=== PATIENT | female | born 1950 | race Caucasian/White ===

== ENCOUNTER 2016-09-01 19:11 | Emergency (ER) | payer MEDICARE ==
[2016-09-01 19:11] VITALS: BMI 30.8
--- NOTE | 2016-09-01 20:16 | C.PDOC ---
History Of Present Illness Patient is a 66 y/o female that presents to the emergency department for evaluation of abdominal pain, nausea, and vomiting that started early today. Pt reports decreased PO intake. Pt was seen here on 05/07/16 with similar symptoms. Otherwise, denies any fever chills, diarrhea, back pain, or any other associated symptoms at this time. Time Seen by Provider: 09/01/16 20:16 Chief Complaint (Nursing): GI Problem History Per: Patient History/Exam Limitations: no limitations Onset/Duration Of Symptoms: Other (early today) Current Symptoms Are (Timing): Still Present Location Of Pain/Discomfort: Diffuse Radiation Of Pain To:: None Quality Of Discomfort: "Pain" Associated Symptoms: Nausea, Vomiting, Loss Of Appetite (decreased PO intake). denies: Fever, Chills, Diarrhea, Back Pain, Chest Pain, Constipation, Urinary Symptoms Exacerbating Factors: None Alleviating Factors: None Recent travel outside of the [place]: No Additional History Per: Patient Abnormal Vaginal Bleeding: No Past Medical History Reviewed: Historical Data, Nursing Documentation, Vital Signs Vital Signs: Last Vital Signs Temp 98.0 F 09/01/16 21:47 Pulse 63 09/01/16 21:47 Resp 21 09/01/16 21:47 BP 132/56 L 09/01/16 21:47 Pulse Ox 94 L 09/01/16 22:07 - Medical History PMH: Diabetes, HTN Family History: States: Unknown Family Hx - Social History Hx Tobacco Use: No Hx Alcohol Use: No Hx Substance Use: No - Immunization History Hx Tetanus Toxoid Vaccination: No Hx Influenza Vaccination: Yes Hx Pneumococcal Vaccination: No Review Of Systems Constitutional: Negative for: Fever, Chills Cardiovascular: Negative for: Chest Pain, Palpitations, Light Headedness Respiratory: Negative for: Cough, Shortness of Breath Gastrointestinal: Positive for: Nausea, Vomiting, Abdominal Pain. Negative for : Diarrhea, Constipation, Hematemesis Genitourinary: Negative for: Dysuria, Frequency, Incontinence, Hematuria Musculoskeletal: Negative for: Back Pain Skin: Negative for: Rash, Lesions, Jaundice, Bruising Neurological: Negative for: Weakness, Numbness, Headache, Dizziness Physical Exam - Physical Exam Appears: Non-toxic, No Acute Distress Skin: Warm, Dry Head: Atraumatic, Normacephalic Eye(s): bilateral: Normal Inspection, EOMI Oral Mucosa: Moist Neck: Supple Chest: Symmetrical, No Tenderness Cardiovascular: Rhythm Regular, No Murmur Respiratory: No Rales, No Rhonchi, No Wheezing Gastrointestinal/Abdominal: Soft, No Tenderness, Distention, No Guarding, No Rebound, Other (tympanic to percussion) Back: No CVA Tenderness Extremity: Normal ROM Extremity: Bilateral: Atraumatic Neurological/Psych: Oriented x3, Normal Speech, Normal Cognition ED Course And Treatment - Laboratory Results Result Diagrams: 09/01/16 04:52 09/01/16 04:52 ECG: Interpreted By Me, Viewed By Me ECG Rhythm: Sinus Rhythm (59), Nonspecific Changes O2 Sat by Pulse Oximetry: 94 Pulse Ox Interpretation: Normal - Radiology CXR: Interpreted by Me, Viewed By Me CXR Interpretation: No: Infiltrates, Fracture, Pnemothorax Progress Note: EKG, labs ordered and reviewed. Pt was given Pepcid, Zofran, and IV fluids in the ER. Reevaluation Time: 23:36 Reassessment Condition: Improved Disposition Counseled Patient/Family Regarding: Studies Performed, Diagnosis, Need For Followup, Rx Given - Disposition Referrals: Danuta Chery FNP [Advanced Practice Nurse] - Disposition: HOME/ ROUTINE Disposition Time: 20:16 Condition: FAIR Prescriptions: Dicyclomine [Dicyclomine HCl] 10 mg PO QID #20 cap Metronidazole [Flagyl] 500 mg PO TID #21 tablet Instructions: Abdominal Pain (ED), Gas and Bloating (ED), Colitis (ED) Print Language: TAIWANESE - Clinical Impression Clinical Impression: Abdominal pain, Colitis - Scribe Statement The provider has reviewed the documentation as recorded by the Leanne Marks Provider Attestation: All medical record entries made by the Leanne were at my direction and personally dictated by me. I have reviewed the chart and agree that the record accurately reflects my personal performance of the history, physical exam, medical decision making, and the department course for this patient. I have also personally directed, reviewed, and agree with the discharge instructions and disposition.
[2016-09-01] MEDS ORDERED: Sodium Chloride 0.9% 1,000 ML IV ONE (20:19)
[2016-09-01 20:31] LABS: BASO # 0.1 K/uL (0.0-0.2); BASO % 0.8 % (0.0-2.0); EOS # 0.2 K/uL (0.0-0.7); EOS % 1.4 % (0.0-4.0); HEMATOCRIT 36.8 % (34.0-47.0); LYMPH # 2.1 K/uL (1.0-4.3); LYMPH % 16.6 % (20.0-40.0); MEAN CELL VOLUME 81.1 fL (81.0-99.0); MEAN CORPUSCULAR HEMOGLOBIN 25.4 pg (27.0-31.0); MEAN CORPUSCULAR HGB CONC 31.3 g/dL (33.0-37.0); MEAN PLATELET VOLUME 8.8 fL (7.2-11.7); MONO # 0.9 K/uL (0.0-0.8); MONO % 6.6 % (0.0-10.0); RED CELL DISTRIBUTION WIDTH 14.4 % (11.5-14.5); WHITE BLOOD COUNT 12.9 K/uL (4.8-10.8)
[2016-09-01 20:50] LABS: INR 1.2
[2016-09-01] MEDS ORDERED: Sodium Chloride 0.9% 1,000 ML ONE (20:58)
[2016-09-01 21:13] LABS: CHLORIDE 93 mmol/L (98-107)
[2016-09-01 21:14] LABS: SODIUM 133 mmol/L (132-148)
[2016-09-01 21:15] LABS: POTASSIUM 4.4 mmol/L (3.6-5.2)
[2016-09-01 21:17] LABS: ALKALINE PHOSPHATASE 123 U/L (38-126); ALT/SGPT 38 U/L (9-52); AST/SGOT 24 U/L (14-36); BILIRUBIN,TOTAL 0.6 mg/dL (0.2-1.3); BLOOD UREA NITROGEN 15 mg/dL (7-17); CARBON DIOXIDE 30 mmol/L (22-30); GFR AFRICAN-AMERICAN > 60
[2016-09-01 21:18] LABS: CALCIUM 8.5 mg/dl (8.6-10.4); GLUCOSE,RANDOM 297 mg/dL (65-105)
[2016-09-01 21:49] VITALS: BP 132/56; PULSE 63; RESP 21; TEMP 98
[2016-09-01 21:55] LABS: RBC URINE < 1 /hpf (0-3); URINE BILIRUBIN NEGATIVE (NEGATIVE); URINE BLOOD NEGATIVE (NEGATIVE); URINE COLOR Yellow (YELLOW); URINE GLUCOSE (UA) 3+ mg/dL (Normal); URINE KETONE NEGATIVE (NEGATIVE); URINE LEUKOCYTE ESTERASE NEG Leu/uL (Negative); URINE PROTEIN NEGATIVE (NEGATIVE); URINE UROBILINOGEN NORMAL mg/dL (0.2-1.0); WBC URINE 2 /hpf (0-5)
[2016-09-01 22:07] VITALS: O2SAT 94
[2016-09-01] MEDS ORDERED: Iodixanol 320 MG/ML 100 ML BOTTLE IV ONE (22:50)
--- NOTE | 2016-09-01 23:24 | CT ---
EXAM: CT Abdomen and Pelvis With Intravenous Contrast CLINICAL HISTORY: 66 years old, female; Pain; Abdominal pain; Generalized; Additional info: Abd pain. , N/v TECHNIQUE: Axial computed tomography images of the abdomen and pelvis with intravenous contrast. This CT exam was performed using one or more of the following dose reduction techniques: automated exposure control, adjustment of the mA and/or kV according to patient size, and/or use of iterative reconstruction technique. Coronal and sagittal reformatted images were created and reviewed. CONTRAST: 100 mL of [id number] administered intravenously. COMPARISON: No relevant prior studies available. FINDINGS: Lower thorax: The bilateral lung bases are clear. The heart is of normal size. A small hiatal hernia is present. ABDOMEN: Liver: No acute findings. Gallbladder and bile ducts: The gallbladder is only minimally distended, without calcified stones. No significant intra- or extrahepatic biliary ductal dilation. Pancreas: Enhances homogeneously. No ductal dilation. No discrete mass. Spleen: No acute findings. Adrenals: No acute findings. Kidneys and ureters: No acute findings. No hydronephrosis or renal calculi. No discrete solid mass. PELVIS: Bladder: No acute findings. Reproductive: No acute findings. Appendix: The air filled appendix is of normal caliber (series 3, image 117; series 601, image 65 ) . ABDOMEN and PELVIS: Stomach and bowel: No obstruction. Mural thickening within multiple loops of small bowel, without surrounding inflammation or fluid to confirm an enteritis. Peritoneum: No significant fluid collection. No free air. Lymph nodes: No pathologically enlarged lymph nodes. Vasculature: Calcified atherosclerotic disease. Bones: No acute fracture. IMPRESSION: Mural thickening within multiple loops of small bowel, without surrounding inflammation or fluid to confirm an enteritis.
--- NOTE | 2016-09-02 18:05 | RAD ---
PROCEDURE: CHEST RADIOGRAPH, 1 VIEW HISTORY: cough COMPARISON: Comparison chest - 06/12/2014 FINDINGS: LUNGS: Poor inspiration with low lung volumes, crowded bronchovascular markings and mild bibasilar atelectasis. PLEURA: No pneumothorax or pleural fluid seen. CARDIOVASCULAR: Heart appears borderline/ mildly enlarged. OSSEOUS STRUCTURES: Mild degenerative changes both shoulder girdles. Mild multilevel degenerative spondylosis of the thoracic spine again noted VISUALIZED UPPER ABDOMEN: Normal. OTHER FINDINGS: None. IMPRESSION: Poor inspiration with low lung volumes, crowded bronchovascular markings and mild bibasilar atelectasis.
--- NOTE | 2016-09-07 16:40 | CARD ---
APPROVED REPORT EKG Measurement Heart [id number] MD [id number] <Conclusion> Sinus bradycardia Otherwise normal ECG
== END 2016-09-01 23:58 | disposition home or self-care (01) ==
LOC: C.ER 19:11
DX: K52.9 Noninfective gastroenteritis and colitis, unspecified (principal); R10.84 Generalized abdominal pain
CPT/HCPCS: 71010; 74177; 80053; 81001; 83690; 85025; 85610; 85730; 96361; 96374; 96375; 99284; J2405; J7040; Q9967

== ENCOUNTER 2017-01-16 08:37 | Emergency (ER) | payer MEDICARE ==
[2017-01-16 08:37] VITALS: BMI 30.8
[2017-01-16 08:47] VITALS: TEMP 97.9
[2017-01-16] MEDS ORDERED: Sodium Chloride 0.9% 1,000 ML IV ONE (09:14)
[2017-01-16] MEDS ORDERED: Sodium Chloride 0.9% 1,000 ML ONE (09:30)
[2017-01-16 09:31] LABS: RBC URINE 6 /hpf (0-3); URINE BACTERIA RARE (<OCC); URINE BILIRUBIN NEGATIVE (NEGATIVE); URINE BLOOD NEGATIVE (NEGATIVE); URINE COLOR Yellow (YELLOW); URINE GLUCOSE (UA) 2+ mg/dL (Normal); URINE KETONE NEGATIVE (NEGATIVE); URINE LEUKOCYTE ESTERASE 3+ Leu/uL (Negative); URINE PROTEIN NEGATIVE (NEGATIVE); URINE UROBILINOGEN NORMAL mg/dL (0.2-1.0); WBC URINE 122 /hpf (0-5)
--- NOTE | 2017-01-16 09:57 | C.PDOC ---
History Of Present Illness 66 y/o female with PMHx of DM and HTN presents to ED with complaints of right sided flank pain and abdominal pain for 1 week. Patient denies fever, chills, nausea, vomiting, urinary symptoms or any other complaints at this time. Time Seen by Provider: 01/16/17 08:45 Chief Complaint (Nursing): Back Pain History Per: Patient History/Exam Limitations: no limitations Onset/Duration Of Symptoms: Days Current Symptoms Are (Timing): Still Present Quality Of Discomfort: "Pain" Severity: Mild Exacerbating Factor(s): Movement Recent travel outside of the [place]: No Past Medical History Reviewed: Historical Data, Nursing Documentation, Vital Signs Vital Signs: Last Vital Signs Temp 97.9 F 01/16/17 08:45 Pulse 68 01/16/17 11:40 Resp 16 01/16/17 11:40 BP 141/73 01/16/17 11:40 Pulse Ox 99 01/16/17 11:40 - Medical History PMH: Diabetes, HTN Surgical History: No Surg Hx Family History: States: No Known Family Hx - Social History Hx Tobacco Use: No Hx Alcohol Use: No Hx Substance Use: No - Immunization History Hx Tetanus Toxoid Vaccination: No Hx Influenza Vaccination: Yes Hx Pneumococcal Vaccination: Yes Review Of Systems Constitutional: Negative for: Fever, Chills Respiratory: Negative for: Shortness of Breath Gastrointestinal: Negative for: Nausea, Vomiting, Abdominal Pain Genitourinary: Negative for: Dysuria, Frequency, Hematuria Musculoskeletal: Positive for: Other (flank pain) Skin: Negative for: Rash Neurological: Negative for: Weakness, Numbness Physical Exam - Physical Exam Appears: Non-toxic, No Acute Distress Skin: Warm, Dry, No Rash Head: Atraumatic, Normacephalic Oral Mucosa: Moist Neck: Normal ROM, Supple Chest: Symmetrical Cardiovascular: Rhythm Regular Respiratory: Normal Breath Sounds, No Rales, No Rhonchi, No Wheezing Gastrointestinal/Abdominal: Soft, Tenderness (mild right side tenderness), No Guarding, No Rebound Rectal: Other (mild right flank tenderness) Back: Paraspinal Tenderness Extremity: Normal ROM Pulses: Left Radial: Normal, Right Radial: Normal Neurological/Psych: Oriented x3, Normal Motor, Normal Sensation Gait: Steady ED Course And Treatment - Laboratory Results Result Diagrams: 01/16/17 10:14 01/16/17 10:14 Lab Interpretation: No Acute Changes O2 Sat by Pulse Oximetry: 100 (RA) Pulse Ox Interpretation: Normal - CT Scan/US No standard instances Other Rad Studies (CT/US): Read By Radiologist, Radiology Report Reviewed CT/US Interpretation: FINDINGS: LOWER THORAX: Unremarkable. LIVER: Unremarkable. No gross lesion or ductal dilatation. GALLBLADDER AND BILE DUCTS : Unremarkable. PANCREAS: Unremarkable. No gross lesion or ductal dilatation. SPLEEN: Unremarkable. ADRENALS: Unremarkable. No mass. KIDNEYS AND URETERS: Unremarkable. No hydronephrosis. No solid mass. VASCULATURE: Unremarkable. No aortic aneurysm. BOWEL: Mild retained feces. No bowel obstruction. No abnormal bowel loops. APPENDIX: Unremarkable. Normal appendix. PERITONEUM: Unremarkable. No free fluid. No free air. Very small umbilical hernia containing only mesenteric fat. LYMPH NODES: Unremarkable. No enlarged lymph nodes. BLADDER: Suboptimally distended. No gross abnormality. REPRODUCTIVE: Normal uterus. BONES: No fracture. Degenerative disc disease L3-4, L4-5 and L5-S1. OTHER FINDINGS: Probable mild constipation with fecal retention. No bowel obstruction. The remainder of the examination is unremarkable aside from minor findings as above. IMPRESSION: Unremarkable non contrast enhanced CT of the abdomen and pelvis. Progress Note: Treated with IVF NSS and toradol. Treated with macrobid. On re- evaluation feeling better, abdomen soft ambulating with steady gait Reassessment Condition: Improved Medical Decision Making Medical Decision Making: Plan: CT Scan, Labs Disposition Counseled Patient/Family Regarding: Studies Performed, Diagnosis, Need For Followup, Rx Given - Disposition Referrals: [facility] [Outside] [facility] [Outside] Disposition: HOSPITALIZED Disposition Time: 11:10 Condition: IMPROVED Prescriptions: Cyclobenzaprine [Cyclobenzaprine HCl] 10 mg PO BID PRN #10 tab PRN Reason: Pain, Mild (1-3) Nitrofurantoin Macrocrystals [Macrobid] 1 cap PO BID #14 cap Polyethylene Glycol 3350 [Miralax] 17 gm PO DAILY PRN #10 [id number] PRN Reason: Constipation Instructions: Urinary Tract Infection in Women (ED), Back Pain (ED) Forms: [employer] (Sudanese) Print Language: WELSH - POA Present On Arrival: None - Clinical Impression Clinical Impression: Low back pain, UTI (urinary tract infection) - PA / BEVERAGE SERVER / Resident Statement MD/DO has reviewed & agrees with the documentation as recorded. - Scribe Statement The provider has reviewed the documentation as recorded by the Scribe Bulmaro Nguyen All medical record entries made by the Leanne were at my direction and personally dictated by me. I have reviewed the chart and agree that the record accurately reflects my personal performance of the history, physical exam, medical decision making, and the department course for this patient. I have also personally directed, reviewed, and agree with the discharge instructions and disposition.
[2017-01-16 10:24] LABS: BASO # 0.1 K/uL (0.0-0.2); BASO % 0.9 % (0.0-2.0); EOS # 0.3 K/uL (0.0-0.7); EOS % 2.5 % (0.0-4.0); HEMATOCRIT 36.6 % (34.0-47.0); LYMPH # 2.1 K/uL (1.0-4.3); LYMPH % 20.1 % (20.0-40.0); MEAN CELL VOLUME 79.9 fL (81.0-99.0); MEAN CORPUSCULAR HEMOGLOBIN 25.9 pg (27.0-31.0); MEAN CORPUSCULAR HGB CONC 32.4 g/dL (33.0-37.0); MEAN PLATELET VOLUME 8.7 fL (7.2-11.7); MONO # 0.7 K/uL (0.0-0.8); MONO % 6.4 % (0.0-10.0); RED CELL DISTRIBUTION WIDTH 15.1 % (11.5-14.5); WHITE BLOOD COUNT 10.4 K/uL (4.8-10.8)
--- NOTE | 2017-01-16 10:43 | CT ---
PROCEDURE: CT Abdomen and Pelvis without intravenous contrast HISTORY: Pain COMPARISON: None. TECHNIQUE: Without contrast.. Contrast Dose: 0 Radiation dose: Total exam DLP = 1132.34 mGy-cm. This CT exam was performed using one or more of the following dose reduction techniques: Automated exposure control, adjustment of the mA and/or kV according to patient size, and/or use of iterative reconstruction technique. FINDINGS: LOWER THORAX: Unremarkable. LIVER: Unremarkable. No gross lesion or ductal dilatation. GALLBLADDER AND BILE DUCTS: Unremarkable. PANCREAS: Unremarkable. No gross lesion or ductal dilatation. SPLEEN: Unremarkable. ADRENALS: Unremarkable. No mass. KIDNEYS AND URETERS: Unremarkable. No hydronephrosis. No solid mass. VASCULATURE: Unremarkable. No aortic aneurysm. BOWEL: Mild retained feces. No bowel obstruction. No abnormal bowel loops. APPENDIX: Unremarkable. Normal appendix. PERITONEUM: Unremarkable. No free fluid. No free air. Very small umbilical hernia containing only mesenteric fat. LYMPH NODES: Unremarkable. No enlarged lymph nodes. BLADDER: Suboptimally distended. No gross abnormality. REPRODUCTIVE: Normal uterus BONES: No fracture. Degenerative disc disease L3-4, L4-5 and L5-S1. OTHER FINDINGS: Probable mild constipation with fecal retention. No bowel obstruction. The remainder of the examination is unremarkable aside from minor findings as above. IMPRESSION: Unremarkable non contrast enhanced CT of the abdomen and pelvis.
[2017-01-16 10:46] LABS: CHLORIDE 97 mmol/L (98-107); POTASSIUM 4.5 mmol/L (3.6-5.2); SODIUM 137 mmol/L (132-148)
[2017-01-16 10:48] LABS: BILIRUBIN,TOTAL 0.3 mg/dL (0.2-1.3); GFR AFRICAN-AMERICAN > 60
[2017-01-16 10:49] LABS: ALB/GLOB RATIO 0.9 (1.0-2.1); ALKALINE PHOSPHATASE 110 U/L (38-126); ALT/SGPT 41 U/L (9-52); AST/SGOT 25 U/L (14-36); BLOOD UREA NITROGEN 18 mg/dL (7-17); CALCIUM 9.4 mg/dl (8.6-10.4); CARBON DIOXIDE 29 mmol/L (22-30); GLUCOSE,RANDOM 224 mg/dL (65-105); TOTAL PROTEIN 8.6 g/dL (6.3-8.3)
[2017-01-16 11:40] VITALS: BP 141/73; PULSE 68; RESP 16
[2017-01-16 18:46] VITALS: O2SAT 100
== END 2017-01-16 11:40 | disposition home or self-care (01) ==
LOC: C.ER 08:37
DX: N39.0 Urinary tract infection, site not specified (principal); M54.5 Low back pain
CPT/HCPCS: 74176; 80053; 81001; 83690; 85025; 96361; 96374; 99284; J1885; J7040

== ENCOUNTER 2017-03-09 10:45 | Emergency (ER) | payer MEDICARE ==
[2017-03-09 10:45] VITALS: BMI 30.8
[2017-03-09] MEDS ORDERED: Sodium Chloride 0.9% 1,000 ML IV ONE ×2 (11:21→13:44)
[2017-03-09 12:00] LABS: BASO # 0.1 K/uL (0.0-0.2); BASO % 0.4 % (0.0-2.0); EOS % 0.1 % (0.0-4.0); HEMATOCRIT 35.7 % (34.0-47.0); LYMPH # 0.9 K/uL (1.0-4.3); LYMPH % 5.6 % (20.0-40.0); MEAN CELL VOLUME 79.8 fL (81.0-99.0); MEAN CORPUSCULAR HEMOGLOBIN 26.2 pg (27.0-31.0); MEAN CORPUSCULAR HGB CONC 32.8 g/dL (33.0-37.0); MEAN PLATELET VOLUME 8.3 fL (7.2-11.7); PLATELET COUNT 290 K/uL (130-400); RED CELL DISTRIBUTION WIDTH 15.6 % (11.5-14.5); WHITE BLOOD COUNT 16.2 K/uL (4.8-10.8)
[2017-03-09 12:17] LABS: RBC URINE 19 /hpf (0-3); URINE BACTERIA RARE (<OCC); URINE BILIRUBIN NEGATIVE (NEGATIVE); URINE BLOOD 1+ (NEGATIVE); URINE COLOR Yellow (YELLOW); URINE GLUCOSE (UA) 3+ mg/dL (Normal); URINE KETONE NEGATIVE (NEGATIVE); URINE LEUKOCYTE ESTERASE NEG Leu/uL (Negative); URINE PROTEIN NEGATIVE (NEGATIVE); URINE UROBILINOGEN NORMAL mg/dL (0.2-1.0); WBC URINE 5 /hpf (0-5)
[2017-03-09 13:14] VITALS: RESP 18; TEMP 100
[2017-03-09 13:15] LABS: ALKALINE PHOSPHATASE 89 U/L (38-126); ALT/SGPT 45 U/L (9-52); AST/SGOT 26 U/L (14-36); BILIRUBIN,TOTAL 0.5 mg/dL (0.2-1.3); BLOOD UREA NITROGEN 19 mg/dL (7-17); CALCIUM 7.5 mg/dl (8.6-10.4); CARBON DIOXIDE 32 mmol/L (22-30); CHLORIDE 100 mmol/L (98-107); GFR AFRICAN-AMERICAN > 60; GLUCOSE,RANDOM 139 mg/dL (65-105); SODIUM 138 mmol/L (132-148); TOTAL PROTEIN 7.7 g/dL (6.3-8.3)
[2017-03-09 13:25] LABS: ALB/GLOB RATIO 0.8 (1.0-2.1)
[2017-03-09 13:25] LABS: NEUTROPHIL 83 % (50-75); TOTAL CELLS COUNTED 100
--- NOTE | 2017-03-09 13:38 | C.PDOC ---
History Of Present Illness 66 year old female presents to ED for evaluation of left lower back pain radiating to her hip. Patient also reports pressure on urination. Otherwise, denies abdominal pain, n/v/d, sensory changes, hematuria, incontinence, vaginal bleeding, vaginal discharge, or fever. Time Seen by Provider: 03/09/17 10:54 Chief Complaint (Nursing): Back Pain History Per: Patient History/Exam Limitations: no limitations Onset/Duration Of Symptoms: Days Current Symptoms Are (Timing): Still Present Quality Of Discomfort: "Pain" Previous Symptoms: Back Pain. denies: Prior Injury Associated Symptoms: None. denies: Incontinence, New Weakness, New Numbness Exacerbating Factor(s): Nothing Additional History Per: Patient Past Medical History Reviewed: Historical Data, Nursing Documentation, Vital Signs Vital Signs: Last Vital Signs Temp 100 F H 03/09/17 10:48 Pulse 73 03/09/17 14:22 Resp 18 03/09/17 14:22 BP 115/65 03/09/17 14:22 Pulse Ox 99 03/09/17 14:22 - Medical History PMH: Diabetes, HTN, Hypercholesterolemia Family History: States: No Known Family Hx - Social History Hx Tobacco Use: No Hx Alcohol Use: No Hx Substance Use: No - Immunization History Hx Tetanus Toxoid Vaccination: No Hx Influenza Vaccination: Yes Hx Pneumococcal Vaccination: Yes Review Of Systems Except As Marked, All Systems Reviewed And Found Negative. Constitutional: Negative for: Fever, Chills Cardiovascular: Negative for: Chest Pain Respiratory: Negative for: Shortness of Breath Gastrointestinal: Negative for: Nausea, Vomiting, Abdominal Pain, Diarrhea Genitourinary: Positive for: Dysuria. Negative for: Frequency, Incontinence, Hematuria, Vaginal Discharge, Vaginal Bleeding Musculoskeletal: Positive for: Back Pain, Other (hip pain) Neurological: Negative for: Weakness, Numbness Physical Exam - Physical Exam Appears: Non-toxic, Other (In mild pain) Skin: Normal Color, Warm, Dry Head: Atraumatic, Normacephalic Eye(s): bilateral: Normal Inspection Oral Mucosa: Moist Neck: Normal ROM, Supple Chest: Symmetrical Cardiovascular: Rhythm Regular, No Murmur Respiratory: Normal Breath Sounds, No Rales, No Rhonchi, No Wheezing Gastrointestinal/Abdominal: Soft, No Tenderness, Other (obese abdomen) Back: No CVA Tenderness, No Vertebral Tenderness, Paraspinal Tenderness (left paralumbar) Extremity: Normal ROM, No Deformity Neurological/Psych: Oriented x3, Normal Speech Gait: Steady ED Course And Treatment - Laboratory Results Result Diagrams: 03/09/17 15:13 03/09/17 12:24 O2 Sat by Pulse Oximetry: 97 (RA) Pulse Ox Interpretation: Normal Progress Note: Blood work, UA ordered and reviewed. Patient was given Toradol, and IV fluids. Disposition Counseled Patient/Family Regarding: Studies Performed, Diagnosis, Need For Followup, Rx Given - Disposition Referrals: Danuta Chery FNP [Advanced Practice Nurse] - Disposition: HOME/ ROUTINE Disposition Time: 16:15 Condition: STABLE Additional Instructions: SEGUIMIENTO CON GRAMAJO MDICO EN 1-2 GUY USE MEDICAMENTOS SEGN SEA NECESARIO REGRESE AL [place] DE EMERGENCIA SI LOS SNTOMAS EMPEORAN Prescriptions: Cyclobenzaprine [Cyclobenzaprine HCl] 10 mg PO BID PRN #15 tab PRN Reason: Muscle Spasm Naproxen 375 mg PO BID PRN #20 tablet PRN Reason: pain Instructions: Acute Low Back Pain (ED) Forms: [employer] (Greenlandic) Print Language: GREENLANDIC - Clinical Impression Clinical Impression: Low back pain - Scribe Statement The provider has reviewed the documentation as recorded by the Scribe Bro Marks All medical record entries made by the Scribe were at my direction and personally dictated by me. I have reviewed the chart and agree that the record accurately reflects my personal performance of the history, physical exam, medical decision making, and the department course for this patient. I have also personally directed, reviewed, and agree with the discharge instructions and disposition.
[2017-03-09 15:15] LABS: BASO # 0.1 K/uL (0.0-0.2); BASO % 0.8 % (0.0-2.0); LYMPH # 1.2 K/uL (1.0-4.3); LYMPH % 7.8 % (20.0-40.0); MEAN CORPUSCULAR HEMOGLOBIN 25.8 pg (27.0-31.0); MEAN CORPUSCULAR HGB CONC 32.2 g/dL (33.0-37.0); MEAN PLATELET VOLUME 8.1 fL (7.2-11.7); MONO # 0.9 K/uL (0.0-0.8); MONO % 6.2 % (0.0-10.0); RED CELL DISTRIBUTION WIDTH 15.6 % (11.5-14.5); WHITE BLOOD COUNT 14.8 K/uL (4.8-10.8)
[2017-03-09 16:34] VITALS: BP 125/66; PULSE 71; O2SAT 99
== END 2017-03-09 16:35 | disposition home or self-care (01) ==
LOC: C.ER 10:45
DX: M54.5 Low back pain (principal)
CPT/HCPCS: 80053; 81001; 83690; 85025; 87086; 96361; 96374; 99284; J1885; J7040